=== PATIENT | female | born 1990 | race Caucasian/White ===

== ENCOUNTER → 2017-10-11 | Outpatient (CLI) | payer BC ==
[~2017-10-11] MED LIST: FLEXERIL 1010 MG/TAB PO; MOTRIN 800800 MG/TAB PO; NORCO 325 MG-51 TAB PO; ZITHROMAX500 M2 PO; ZOFRAN 4MG T4 MG/TAB PO
== END ==
LOC: COL.RAD 12:25
DX: S93.491A Sprain of other ligament of right ankle, initial encounter (principal); M95.8 Other specified acquired deformities of musculoskeletal system